=== PATIENT | male | born 1960 | race Caucasian/White ===

== ENCOUNTER 2023-10-07 07:24 | Emergency (ER) | payer BC ==
[~2023-10-07] VITALS: Ht 170.2 cm; Wt 101.6 kg
[2023-10-07 08:12] LABS: APPEARANCE, URINE CLEAR (CLEAR); BACTERIA, URINE AUTO NEGATIVE (NEGATIVE); BILIRUBIN, URINE AUTO NEGATIVE (NEGATIVE); BLOOD, URINE BLOOD 1+ (NEGATIVE); COLOR, URINE YELLOW (YELLOW); GLUCOSE, URINE (UA) AUTO NEGATIVE (NEGATIVE); KETONE, URINE AUTO NEGATIVE (NEGATIVE); LEUKOCYTE ESTERASE, URINE AUTO NEGATIVE (NEGATIVE); MUCUS, URINE SMALL (NEGATIVE); NITRITE, URINE AUTO NEGATIVE (NEGATIVE); PROTEIN, URINE AUTO NEGATIVE (NEGATIVE); RBC, URINE AUTO 5 /HPF (0-3); SPECIFIC GRAVITY URINE AUTO 1.009 (1.002-1.035); SQUAMOUS EPITHELIAL CELL UR AU 0 /HPF (0-6); UROBILINOGEN, URINE AUTO 0.2 mg/dL (0.0-2.0); WBC, URINE AUTO 1 /HPF (0-3)
[2023-10-07 08:41] LABS: BASO # 0.1 10^3/uL (0.0-0.2); BASO % 0.4 % (0.0-1.0); EOS # 0.1 10^3/uL (0.0-0.5); EOS % 0.4 % (0.0-3.0); HEMATOCRIT 43.7 % (42.0-52.0); HEMOGLOBIN 14.7 g/dl (13.5-17.5); LYMPH % 12.5 % (24.0-44.0); MEAN CORPUSCULAR HEMOGLOBIN 27.5 pg (27.0-33.0); MEAN CORPUSCULAR HGB CONC 33.6 g/dl (32.0-36.5); MEAN CORPUSCULAR VOLUME 81.7 fl (80.0-96.0); MONO # 1.5 10^3/uL (0.0-0.8); MONO % 9.4 % (2.0-8.0); PLATELET COUNT, AUTOMATED 277 10^3/uL (150-450); RED BLOOD COUNT 5.35 10^6/uL (4.30-6.10); WHITE BLOOD COUNT 15.6 10^3/uL (4.0-10.0)
[2023-10-07 09:14] LABS: ALBUMIN 4.1 G/DL (3.2-5.2); BILIRUBIN,DIRECT 0.1 MG/DL (<0.4); BILIRUBIN,TOTAL 0.4 MG/DL (0.3-1.2); TOTAL PROTEIN 7.1 G/DL (5.7-8.2)
[2023-10-07] MEDS ORDERED: ISOVUE-370 76% 100ML VIAL As Ordered ONE (09:32)
[2023-10-07] MEDS: NS 1,000 ML IV ONE (10:01)
[2023-10-07 10:16] LABS: CALCIUM LEVEL 9.3 MG/DL (8.3-10.6); CREATININE FOR GFR 1.58 MG/DL (0.70-1.30); GLOMERULAR FILTRATION RATE 47.5 (>49); POTASSIUM SERUM 4.5 MMOL/L (3.5-5.1)
[2023-10-07] MEDS ORDERED: COLC1CAP PO (11:47)
[2023-10-07] MEDS ORDERED: OMEP40CA4 PO (11:47)
[2023-10-07] MEDS ORDERED: LISI10TA22 PO (11:47)
[2023-10-07] MEDS ORDERED: ATOR1TAB21 PO (11:47)
[2023-10-07] MEDS ORDERED: ASPI81CH33 PO (11:47)
[2023-10-07] MEDS ORDERED: MULT1TAB8 PO (11:47)
[2023-10-07] MEDS: TAMSULOSIN 0.4 MG CAP PO ONE (11:47)
[2023-10-07 11:48] VITALS: BP 135/90; TEMP 98.2; O2SAT 98
[2023-10-07] MEDS: cefTRIAXone SOD 1 GM in D5W MINI-BAG PLUS 50 ML IV ONE (11:48)
[2023-10-07] MEDS ORDERED: ONDA-282 PO (12:34)
[2023-10-07] MEDS ORDERED: CEFD300CAP PO (12:34)
[2023-10-07] MEDS ORDERED: FLOM0.4C39 PO (12:34)
[2023-10-07] MEDS ORDERED: KETO10TAB PO (12:34)
== END 2023-10-07 13:11 | disposition home or self-care (01) ==
LOC: M ED 07:24
DX: N20.1 Calculus of ureter (principal); D72.829 Elevated white blood cell count, unspecified; I10 Essential (primary) hypertension; E78.5 Hyperlipidemia, unspecified; J30.89 Other allergic rhinitis; Z79.899 Other long term (current) drug therapy; Z79.82 Long term (current) use of aspirin
CPT/HCPCS: 74177; 80047; 80048; 80076; 81001; 83690; 85025; 87086; 96361; 96365; 99284; J0696; Q9967